=== PATIENT | male | born 1970 | race Caucasian/White ===

== ENCOUNTER 2019-05-11 08:45 | Emergency (ER) | payer BC, OTHER ==
--- NOTE | 2019-05-11 09:43 | CT ---
CT BRAIN NONCONTRAST: DATE: 05/11/2019 HISTORY: 48-year-old male with persistent posttraumatic headache FINDINGS: There is no evidence of acute intra-axial or extra-axial hemorrhage. There is no midline shift or any other mass effect. There is no extra-axial fluid collection. The ventricles are normal in size and configuration. The tympanomastoid cavities, and the upper portions of the paranasal sinuses included in these images, are grossly clear. Calvarium is intact. IMPRESSION: Normal.
== END 2019-05-11 09:48 | disposition home or self-care (01) ==
LOC: SCSER 08:45
DX: S00.01XA Abrasion of scalp, initial encounter (principal); W22.8XXA Striking against or struck by other objects, initial encounter
CPT/HCPCS: 70450

== ENCOUNTER 2019-12-15 16:03 | Outpatient (CLI) | payer OTHER ==
[2019-12-15 17:02] LABS: #Basophils 0.1 thou/uL (0.0-0.2); #Eosinphils 0.1 thou/uL (0.0-0.7); #Lymphocytes 1.3 thou/uL (1.20-3.40); #Monocytes 0.5 thou/uL (0.11-0.59); #Neutrophils 3.6 thou/uL (1.40-6.50); %Basophils 1.1 % (0.0-1.0); %Eosinophils 1.5 % (0.0-10.0); %Lymphocytes 23.9 % (21.0-51.0); %Monocytes 8.4 % (0.0-10.0); %Neutrophils 65.2 % (42.0-75.0); Hemoglobin 15.7 g/dL (14.0-18.0); Mean Corpuscular HGB CONC 34.7 g/dL (32.0-36.0); Mean Corpuscular Hemoglobin 31.2 pg (27.0-31.0); Mean Corpuscular Volume 89.9 fL (78.0-98.0); Mean Platelet Volume 8.6 fL (7.4-10.4); Platelet Count 169 thou/uL (130-400); Red Blood Cell (RBC) Count 5.04 mill/uL (4.70-6.10); White Blood Cell (WBC) Count 5.5 thou/uL (4.8-10.8)
== END 2019-12-15 16:04 | disposition home or self-care (01) ==
LOC: LABBT 16:03
PROVIDERS: ATTEND Orthopaedic Surgery Hand Surgery
DX: Z01.818 Encounter for other preprocedural examination (principal); S62.522B Displaced fracture of distal phalanx of left thumb, initial encounter for open fracture; S60.112A Contusion of left thumb with damage to nail, initial encounter
CPT/HCPCS: 85025; 93005; 93010

== ENCOUNTER 2019-12-16 07:50 | Day surgery (SDC) | payer OTHER ==
[2019-12-15 16:23] VITALS: BMI 30.3
[2019-12-16] MEDS ORDERED: Lidocaine 1% PF 5 ML VIAL ONE (09:19)
[2019-12-16] MEDS ORDERED: Ketorolac Tromethamine 30 MG/ML VIAL ONE ×2 (09:19→13:27)
[2019-12-16] MEDS ORDERED: PROPOFOL 200 MG/20 ML VIAL ONE (09:19)
[2019-12-16] MEDS ORDERED: Ondansetron PF 4 MG/2 ML Vial ONE (09:19)
[2019-12-16] MEDS ORDERED: Bacitracin Zinc Ointment 30 gm TUBE ONE (10:50)
[2019-12-16] MEDS ORDERED: Bupivacaine PF 0.5% 30 ML VIAL ONE (10:50)
[2019-12-16] MEDS ORDERED: Midazolam HCl 2 mg/2 ml Vial ONE (11:00)
[2019-12-16] MEDS ORDERED: HYDROmorphone 0.5 MG/0.5 ML SYRINGE ONE (11:06)
--- NOTE | 2019-12-16 14:43 | RAD ---
RADIOGRAPHS LEFT DIGIT 2 VIEWS: DATE: 12/16/2019. HISTORY: A 49-year-old female with comminuted fracture of 1st distal phalanx. FINDINGS: Two small field of view fluoroscopic spot images in C-arm demonstrate 2 orthogonal metallic pins acro ss the comminuted, minimally displaced fracture of the 1st distal phalanx. IMPRESSION: Ongoing external fixation of comminuted fracture of 1st distal phalanx. POS: [facility]
--- NOTE | 2019-12-18 16:25 | OP ---
DATE OF PROCEDURE: 12/16/2019 PREOPERATIVE DIAGNOSIS: 1. Left thumb open fracture. 2. 3 cm jagged and stellate wound/laceration. 3. Nailbed laceration. FINDINGS: 1. Nailbed laceration was 1 cm. 2. Left thumb open fracture. 3. 3 cm jagged and stellate wound/laceration. PROCEDURE PERFORMED: 1. Debridement of wound. 2. Debridement of material associated with open fracture. 3. Open reduction and pinning/internal fixation of distal phalanx fracture of the left thumb. 4. Wound closure 3 cm. 5. C-arm supervision. 6. Nailbed repair, 1 cm. SPECIMENS REMOVED: None except for the hematoma associated with the fracture line and the nailbed injury. ESTIMATED BLOOD LOSS: 10 mL. INJECTABLE: 20 mL of 0.5% Marcaine along with a general LMA technique by [facility] [facility]. INDICATIONS: Open wound, comminuted fracture, nailbed likelihood with fracture, and a 50% nailbed hematoma. DESCRIPTION OF PROCEDURE: After successful general LMA technique, the limb was prepped and draped. We gave a block after a time-out was done at metacarpophalangeal joint level with 20 mL of 0.5% Marcaine total. We then exsanguinated the limb, inflated tourniquet to 250 mmHg pressure. I removed the nail. We then saw the nailbed laceration at the level of the fracture. Through this area, we found the primary portion of the fracture, and using a curette, [place] blade, 2 L normal saline with bulb syringe pressure with antibiotics inside, we completed the debridement using excisional technique at this point. We debrided the wound using same fashion except there was no material other than intra laceration hematoma. The laceration was Y-shaped and jagged. We made this smooth, and then at that point, repaired the laceration using 5-0 nylon interrupted simple pattern until that was well reduced. We then visualized the nailbed laceration, repaired it as well using 6-0 chromic interrupted simple stitch. We now completed the repair. We then knew where the fracture was, reduced it, cross pinned it to the central fragment because it was a Y-type split and then took the central fragment and its Y-split embedded into the proximal third and held this with K-wire. The patient then had the tourniquet released. Hemostasis was obtained. The nail plate itself was clean, placed back on the eponychial fold. The patient then left the operating room with bacitracin and Adaptic dressing, a pink digit with 1 second refill , and a splint and no evidence of anesthetic or operative complication. Job ID: [id number]
== END 2019-12-16 15:25 | disposition home or self-care (01) ==
LOC: SDC 07:50
PROVIDERS: ATTEND Orthopaedic Surgery Hand Surgery
PROC: 0PSS04Z Reposition Left Thumb Phalanx with Internal Fixation Device, Open Approach (ICD-10-PCS; principal; 2019-12-16)
PROC: 0HQQXZZ Repair Finger Nail, External Approach (ICD-10-PCS; principal; 2019-12-16)
DX: S62.522B Displaced fracture of distal phalanx of left thumb, initial encounter for open fracture (principal); S60.112A Contusion of left thumb with damage to nail, initial encounter; W27.8XXA Contact with other nonpowered hand tool, initial encounter; Y99.0 Civilian activity done for income or pay
CPT/HCPCS: 76000; J0690; J1170; J1885; J2001; J2250; J2405; J2704; J3490; S0020